=== PATIENT | female | born 1955 | race Hispanic/Latino ===

== ENCOUNTER 2017-12-06 17:48 | Emergency (ER) | payer OTHER ==
[2017-12-06 18:54] LABS: Absolute Lymphocytes (CBC) 2.1 K/uL (0.7-4.9); Absolute Monocytes 0.5 K/uL (0.1-1.3); Absolute Neutrophil 4.6 K/uL (1.8-8.0); Hematocrit 41.2 % (36.0-45.0); Lymphocytes % 28.3 % (15.3-44.8); MCH 30.5 pg (27.0-35.0); MCV 90.3 fL (80-100); Protime INR 1.04; RBC Red Blood Cell Count 4.56 M/uL (3.86-4.86)
[2017-12-06 18:58] LABS: Potassium 3.5 mEq/L (3.6-5.0)
[2017-12-06 19:04] LABS: Albumin 4.3 g/dL (3.2-5.5); Bilirubin Direct 0.1 mg/dL (0-0.2); Bilirubin Total 0.5 mg/dL (0.3-1.2); Protein, Total 7.3 g/dL (6.0-8.3)
--- NOTE | 2017-12-06 19:09 | RAD REPORT ---
EXAM DESCRIPTION: Regan Single View12/06/2017 6:45 pm CLINICAL HISTORY: sob COMPARISON: 2006 FINDINGS: The lungs appear clear of acute infiltrate. The heart is normal size IMPRESSION: No acute abnormalities displayed
--- NOTE | 2017-12-06 19:19 | RAD REPORT ---
EXAM DESCRIPTION: VASExtrem Venous W Compress Bil12/06/2017 7:09 pm CLINICAL HISTORY: Bilateral leg swelling COMPARISON: none FINDINGS: The common femoral, superficial femoral, popliteal and posterior tibial veins bilaterally are compressible and demonstrate augmentation. Doppler demonstrates good flow. IMPRESSION: No evidence of deep venous thrombosis involving either lower extremity.
[2017-12-06 19:28] LABS: Urine Blood NEGATIVE (NEG); Urine Glucose NEGATIVE (NEG); Urine Protein NEGATIVE (NEG)
--- NOTE | 2017-12-06 19:45 | ER ---
Nurse's Notes [facility] Name: Luz Elena Calderon Age: 62 yrs Sex: Female : 1955 Arrival Date: 12/06/2017 Time: 17:50 Bed 25 Private MD: Trey Bell Diagnosis: Bilateral pedal edema Presentation: 12/06 17:56 Presenting complaint: Patient states: RAMIRO LE swelling for 2 weeks. Pt denies SOB. la1 Transition of care: patient was not received from another setting of care. Onset of symptoms was December 06, 2017. Care prior to arrival: None. 17:56 Method Of Arrival: Wheelchair la1 17:56 Acuity: AILEEN 3 la1 Historical: - Allergies: 17:56 No Known Allergies; la1 - PMHx: 17:56 Hypertension; la1 - Immunization history:: Adult Immunizations up to date. - Social history:: Smoking status: Patient/guardian denies using tobacco. Screenin:25 Abuse screen: Denies threats or abuse. Denies injuries from another. Nutritional aj screening: No deficits noted. Tuberculosis screening: No symptoms or risk factors identified. Fall Risk None identified. Assessment: 18:25 General: Appears in no apparent distress. comfortable, Behavior is calm, cooperative, aj appropriate for age. Pain: Denies pain. Neuro: Level of Consciousness is awake, alert, obeys commands, Oriented to person, place, time, situation. Cardiovascular: Capillary refill < 3 seconds in bilateral fingers Patient's skin is warm and dry. Edema is 2+ to left ankle, left foot, left toes, right ankle, right foot and right toes. Respiratory: Airway is patent Respiratory effort is even, unlabored, Respiratory pattern is regular, symmetrical. Derm: Skin is intact, is healthy with good turgor, Skin is pink, warm \T\ dry. normal. 20:22 Reassessment: Patient appears in no apparent distress at this time. No changes from aj previously documented assessment. Patient and/or family updated on plan of care and expected duration. Pain level reassessed. Patient is alert, oriented x 3, equal unlabored respirations, skin warm/dry/pink. Patient denies pain at this time. Vital Signs: 17:56 BP 157 / 85; Pulse 89; Resp 16; Temp 97.1(TE); Pulse Ox 100% on R/A; Weight 94.35 kg la1 (R); 19:53 BP 120 / 75; Pulse 73; Resp 17; Pulse Ox 98% on R/A; aj 20:22 BP 136 / 76; Pulse 77; Resp 17; Pulse Ox 97% on R/A; aj ED Course: 17:50 Patient arrived in ED. as 17:50 Trey Bell MD is Private Physician. as 17:56 Triage completed. la1 17:57 Arm band placed on left wrist. la1 18:00 Junior Nathan MD is Attending Physician. kdr 18:25 Kelly Corona RN is Primary Nurse. aj 18:25 Patient has correct armband on for positive identification. aj 18:36 Inserted saline lock: 20 gauge in right antecubital area, using aseptic technique. aj Blood collected. By Tony Flores. 18:44 XRAY Chest (1 view) In Process Unspecified. EDMS 18:53 Ultrasound completed. Patient tolerated well. sg3 19:32 Attending Physician role handed off by Junior Nathan MD pkl 19:32 Fortino Arriaga MD is Attending Physician. pkl 19:44 Trey Bell MD is Referral Physician. pkl 20:22 No provider procedures requiring assistance completed. IV discontinued, intact, aj bleeding controlled, No redness/swelling at site. Pressure dressing applied. Administered Medications: 20:02 Drug: LaSIX 40 mg Route: PO; aj 20:23 Follow up: Response: No adverse reaction aj 20:02 Drug: K-Dur 20 mEq Route: PO; aj 20:23 Follow up: Response: No adverse reaction aj Outcome: 19:45 Discharge ordered by . pkl 20:22 Discharged to home ambulatory, with family. aj 20:22 Condition: good 20:22 Discharge instructions given to patient, family, Instructed on discharge instructions, follow up and referral plans. medication usage, Demonstrated understanding of instructions, follow-up care, medications, Prescriptions given X 2. 20:24 Patient left the ED. aj Signatures: Dispatcher [employer] EDMS Kelly Corona RN RN aj Lam, Pin, MD MD pkJunior Levy MD MD kdr Martinez, Amelia as Attema, Lee, RN RN la1 Madhuri Sadler sg3 Corrections: (The following items were deleted from the chart) 19:18 19:05 Ultrasound completed. Patient tolerated well. sg3 sg3 :18 19:10 In radiology for Extrem Venous W Compression Ramiro+VAS.RAD.BRZ. EDMS sg3
--- NOTE | 2017-12-06 19:45 | EDPHYS ---
Physician Documentation [facility] Name: Luz Elena Calderon Age: 62 yrs Sex: Female : 1955 Arrival Date: 12/06/2017 Time: 17:50 Bed 25 Private MD: Trey Bell ED Physician Fortino Arriaga HPI: 12/06 18:17 This 62 yrs old Female presents to ER via Wheelchair with complaints of Feet kdr Swelling. 18:17 The patient presents with swelling, tenderness. The complaints affect the left calf, kdr left Achilles, left heel, left borges, anterior aspect of left ankle and dorsum of left foot, right calf, right Achilles, right heel, right borges, anterior aspect of right ankle and dorsum of right foot. Context: The problem was sustained at home, resulted from an unknown cause, the patient can fully bear weight, the patient is able to ambulate, without difficulty. Onset: The symptoms/episode began/occurred gradually, 2 week(s) ago. Modifying factors: The symptoms are alleviated by nothing. the symptoms are aggravated by weight bearing. Associated signs and symptoms: The patient has no apparent associated signs or symptoms. Treatment prior to arrival includes: no previous treatment. Severity of symptoms: At their worst the symptoms were mild, in the emergency department the symptoms are unchanged. The patient has not experienced similar symptoms in the past. The patient has not recently seen a physician. Historical: - Allergies: 17:56 No Known Allergies; la1 - PMHx: 17:56 Hypertension; la1 - Immunization history:: Adult Immunizations up to date. - Social history:: Smoking status: Patient/guardian denies using tobacco. ROS: 18:17 Constitutional: Negative for fever, chills, and weight loss, Eyes: Negative for injury, kdr pain, redness, and discharge, ENT: Negative for injury, pain, and discharge, Neck: Negative for injury, pain, and swelling, Cardiovascular: Negative for chest pain, palpitations, and edema, Respiratory: Negative for shortness of breath, cough, wheezing, and pleuritic chest pain, Abdomen/GI: Negative for abdominal pain, nausea, vomiting, diarrhea, and constipation, Back: Negative for injury and pain, : Negative for injury, bleeding, discharge, and swelling, Skin: Negative for injury, rash, and discoloration, Neuro: Negative for headache, weakness, numbness, tingling, and seizure activity. Psych: Negative for depression, anxiety, suicide ideation, homicidal ideation, and hallucinations, Allergy/Immunology: Negative for hives, rash, and allergies, Endocrine: Negative for neck swelling, polydipsia, polyuria, polyphagia, and marked weight changes, Hematologic/Lymphatic: Negative for swollen nodes, abnormal bleeding, and unusual bruising. 18:17 MS/extremity: Positive for swelling, tenderness. Exam: 18:17 Constitutional: This is a well developed, well nourished patient who is awake, alert, kdr and in no acute distress. Head/Face: Normocephalic, atraumatic. Eyes: Pupils equal round and reactive to light, extra-ocular motions intact. Lids and lashes normal. Conjunctiva and sclera are non-icteric and not injected. Cornea within normal limits. Periorbital areas with no swelling, redness, or edema. Neck: Trachea midline, no thyromegaly or masses palpated, and no cervical lymphadenopathy. Supple, full range of motion without nuchal rigidity, or vertebral point tenderness. No Meningismus. Chest/axilla: Normal chest wall appearance and motion. Nontender with no deformity. No lesions are appreciated. Cardiovascular: Regular rate and rhythm with a normal S1 and S2. No gallops, murmurs, or rubs. Normal PMI, no JVD. No pulse deficits. Respiratory: Lungs have equal breath sounds bilaterally, clear to auscultation and percussion. No rales, rhonchi or wheezes noted. No increased work of breathing, no retractions or nasal flaring. Abdomen/GI: Soft, non-tender, with normal bowel sounds. No distension or tympany. No guarding or rebound. No evidence of tenderness throughout. Back: No spinal tenderness. No costovertebral tenderness. Full range of motion. Skin: Warm, dry with normal turgor. Normal color with no rashes, no lesions, and no evidence of cellulitis. Neuro: Awake and alert, GCS 15, oriented to person, place, time, and situation. Cranial nerves II-XII grossly intact. Motor strength 5/5 in all extremities. Sensory grossly intact. Cerebellar exam normal. Normal gait. Psych: Awake, alert, with orientation to person, place and time. Behavior, mood, and affect are within normal limits. 18:17 Musculoskeletal/extremity: Extremities: Circulation is intact in all extremities. Edema, 2+ to the left midcalf, left ankle, left foot, left toes, right midcalf, right ankle, right foot and right toes is noted. Vital Signs: 17:56 BP 157 / 85; Pulse 89; Resp 16; Temp 97.1(TE); Pulse Ox 100% on R/A; Weight 94.35 kg la1 (R); 19:53 BP 120 / 75; Pulse 73; Resp 17; Pulse Ox 98% on R/A; aj 20:22 BP 136 / 76; Pulse 77; Resp 17; Pulse Ox 97% on R/A; aj MDM: 18:17 Data reviewed: vital signs, nurses notes, lab test result(s). kdr 19:45 Patient medically screened. pkl 12/06 18:17 Order name: LFT's; Complete Time: 19:35 kdr 12/06 18:17 Order name: Basic Metabolic Panel; Complete Time: 19:35 kdr 12/06 18:17 Order name: BNP; Complete Time: 19:35 kdr 12/06 18:17 Order name: CBC with Diff; Complete Time: 19:35 kdr 12/06 18:17 Order name: Magnesium; Complete Time: 19:35 kdr 12/06 18:17 Order name: PT-INR; Complete Time: 19:35 kdr 12/06 18:17 Order name: Ptt, Activated; Complete Time: 19:35 kdr 12/06 18:17 Order name: Troponin (emerg Dept Use Only); Complete Time: 19:35 kdr 12/06 18:17 Order name: XRAY Chest (1 view); Complete Time: 19:35 kdr 12/06 18:17 Order name: EKG; Complete Time: 18:17 kdr 12/06 18:17 Order name: US Extremity Venou Bilateral; Complete Time: 19:35 kdr 12/06 19:23 Order name: Urine Dipstick--Ancillary (enter results); Complete Time: 19:35 rg2 12/06 18:17 Order name: Cardiac monitoring; Complete Time: 18:40 kdr 12/06 18:17 Order name: EKG - Nurse/Tech; Complete Time: 18:40 kdr 12/06 18:17 Order name: IV Saline Lock; Complete Time: 18:40 kdr 12/06 18:17 Order name: Labs collected and sent; Complete Time: 18:40 kdr 12/06 18:17 Order name: O2 Per Protocol; Complete Time: 18:40 kdr 12/06 18:17 Order name: O2 Sat Monitoring; Complete Time: 18:40 kdr 12/06 18:17 Order name: Urine Dipstick-Ancillary (obtain specimen); Complete Time: 18:40 kdr Administered Medications: 20:02 Drug: LaSIX 40 mg Route: PO; aj 20:23 Follow up: Response: No adverse reaction aj 20:02 Drug: K-Dur 20 mEq Route: PO; aj 20: Follow up: Response: No adverse reaction aj Disposition: 12/06/17 19:45 Discharged to Home. Impression: Bilateral pedal edema. - Condition is Stable. - Prescriptions for Lasix 20 mg Oral Tablet - take 1 tablet by ORAL route once daily; 20 tablet. Potassium Chloride 10 mEq Oral Capsule, Sustained Release - take 1 tablet by ORAL route every 12 hours; 40 tablet. - Medication Reconciliation Form, Thank You Letter, Antibiotic Education, Prescription Opioid Use form. - Follow up: Trey Bell MD; When: 7 - 10 days; Reason: Re-evaluation by your physician. - Problem is new. - Symptoms are unchanged. Signatures: Dispatcher [employer] Kelly Yanez, RN Fortino Aquino MD MD pkl Rittger, Kevin, MD MD kdr Attema, Lee, RN RN la1
[2017-12-06] MEDS ORDERED: FUROSEMIDE 40 MG/4 ML VIAL ONE (20:16)
[2017-12-06] MEDS ORDERED: POTASSIUM 25 MEQ EFFERV TAB ONE (20:17)
[2017-12-06] MEDS ORDERED: FUROSEMIDE 40 MG TABLET ONE (20:20)
--- NOTE | 2017-12-07 07:07 | EKG ---
Test Date: 2017-12-06 Test Time: 18:21:09 Hull Inspector: PHUONG MEASUREMENT RESULTS: Intervals: Rate: 84 IL: 168 QRSD: 82 QT: 398 QTc: 470 [place]: P: 38 IL: 168 QRS: 7 T: 31 INTERPRETIVE STATEMENTS: Normal sinus rhythm Moderate voltage criteria for LVH, may be normal variant Borderline ECG Compared to ECG 08/16/2016 17:54:49 No significant changes Electronically Signed On 12-07-17 07:06:33 CDT by Paul Coker
== END 2017-12-06 20:24 | disposition home or self-care (01) ==
LOC: ER 17:48
DX: R60.0 Localized edema (principal); I10 Essential (primary) hypertension
CPT/HCPCS: 36415; 71045; 80048; 80076; 81003; 83735; 83880; 84484; 85025; 85610; 85730; 93005; 93970; 99284

== ENCOUNTER 2018-01-31 08:50 | Emergency (ER) | payer OTHER ==
[2018-01-31] MEDS ORDERED: NA CHLORIDE 0.9% 1,000 ML ONE (09:48)
[2018-01-31] MEDS ORDERED: ONDANSETRON 4 MG/2 ML VIAL ONE (09:48)
[2018-01-31] MEDS ORDERED: MORPHINE 4 MG/ML SYR ONE (09:48)
[2018-01-31 09:55] LABS: Absolute Lymphocytes (CBC) 1.7 K/uL (0.7-4.9); Absolute Monocytes 0.3 K/uL (0.1-1.3); Absolute Neutrophil 3.7 K/uL (1.8-8.0); Basophils % 0.9 % (0-1.3); Eosinophils % 3.8 % (0-4.4); Hematocrit 40.8 % (36.0-45.0); Lymphocytes % 27.5 % (15.3-44.8); MCH 30.9 pg (27.0-35.0); MCV 91.3 fL (80-100); MPV 9.5 fL (7.6-11.3); Monocytes % 5.8 % (3.3-12.3); RBC Red Blood Cell Count 4.47 M/uL (3.86-4.86)
[2018-01-31 10:01] LABS: Potassium 3.7 mEq/L (3.6-5.0)
--- NOTE | 2018-01-31 11:23 | RAD REPORT ---
EXAM DESCRIPTION: CT - Head C Spine Cap W Con - 01/31/2018 11:02 am CLINICAL HISTORY: Fall, head, neck, chest and abdomen pain COMPARISON: CT head August 2016 TECHNIQUE: Axial [address] head images were obtained. Axial [address] cervical spine images were obtaine d with sagittal and coronal reconstruction images reviewed. During dynamic enhancement of 100mL non-i onic contrast, axial 5 mm images of the chest, abdomen and pelvis were obtained. All CT scans are performed using dose optimization technique as appropriate and may include automated exposure control or mA/KV adjustment according to patient size. FINDINGS: No intracranial hemorrhage, mass or edema. No midline shift or abnormal fluid collection. Ventricles are normal. Arterial and physiologic calcifications are present. Mastoid air cells and par anasal sinuses are clear. No skull fracture. CT cervical spine imaging shows normal height. Normal alignment of the vertebrae. No significant loss in disc height. Degenerative changes are mild for age. No paraspinal mass or hematoma seen. Central canal detail is inherently limited. Concerns for traumatic disc herniation or traumatic cord injury c an be further addressed with MR imaging. CT chest shows no pneumothorax, pulmonary contusion or pleural fluid collection. No mediastinal hemat angelica and the aorta and pulmonary arteries are unremarkable. No chest will mass or abnormal axillary fi nding. No displaced rib fracture or other significant bony finding. CT abdomen and pelvis show no injury to solid abdominal viscera. Cholecystectomy changes are evident. No biliary tree dilatation. No bowel injury or significant finding. No free air, free fluid or abnor mal stranding. No urinary bladder abnormality. Patient has a 6 centimeter fat only umbilical hernia w ith a 2 centimeter neck. No congestion or edema of the herniated fat. Disc and bony degenerative changes are present. No acute bone finding. IMPRESSION: No hemorrhage, edema or acute CT Head finding. No significant change from the [address] study . No significant CT Cervical Spine finding. No significant CT Chest finding. No significant CT Abdomen and Pelvis finding.
--- NOTE | 2018-01-31 11:28 | EDPHYS ---
Physician Documentation [facility] Name: Luz Elena Calderon Age: 62 yrs Sex: Female : 1955 Arrival Date: 01/31/2018 Time: 08:53 Bed 14 Private MD: Trey Bell ED Physician Narendra Flores HPI: 01/31 11:29 This 62 yrs old Female presents to ER via Wheelchair with complaints of Fall ps1 Injury. 11:29 patient had recently cleaned the tub and was showering. Slipped and hit the left side ps1 of her body on the tub edge. Complaining of left flank pain and rib pain. Pain rated as moderate and worse with movement. No shortness of breath. Not on blood thinners. Did not hit head, no LOC. . Historical: - Allergies: 11:39 No Known Allergies; tw2 - Home Meds: 11:39 lisinopril 10 mg Oral tab 1 tab twice a day [Active]; tw2 - PMHx: 09:12 Hypertension; iw - Immunization history:: Adult Immunizations up to date. - Social history:: Smoking status: Patient/guardian denies using tobacco. - Ebola Screening: : Patient negative for fever greater than or equal to 101.5 degrees Fahrenheit, and additional compatible Ebola Virus Disease symptoms Patient denies travel to an Ebola-affected area in the 21 days before illness onset. ROS: 11:29 Constitutional: Negative for fever, chills, and weight loss, Eyes: Negative for injury, ps1 pain, redness, and discharge, ENT: Negative for injury, pain, and discharge, Cardiovascular: Negative for chest pain, palpitations, and edema, Respiratory: Negative for shortness of breath, cough, wheezing, and pleuritic chest pain, Abdomen/GI: Negative for abdominal pain, nausea, vomiting, diarrhea, and constipation. 11:29 Skin: Negative for injury, rash, and discoloration, Neuro: Negative for headache, weakness, numbness, tingling, and seizure, Psych: Negative for depression, anxiety, suicide ideation, homicidal ideation, and hallucinations. 11:29 MS/extremity: Positive for contusion, tenderness. Exam: 11:29 Constitutional: This is a well developed, well nourished patient who is awake, alert, ps1 and in no acute distress. Head/Face: Normocephalic, atraumatic. Eyes: Pupils equal round and reactive to light, extra-ocular motions intact. Lids and lashes normal. Conjunctiva and sclera are non-icteric and not injected. Neck: Trachea midline, no thyromegaly or masses palpated, and no cervical lymphadenopathy. Supple, full range of motion without nuchal rigidity, or vertebral point tenderness. No Meningismus. Cardiovascular: Regular rate and rhythm. No gallops, murmurs, or rubs. Normal PMI, no JVD. No pulse deficits. Respiratory: Lungs have equal breath sounds bilaterally, clear to auscultation and percussion. No rales, rhonchi or wheezes noted. No increased work of breathing, no retractions or nasal flaring. Abdomen/GI: Soft, non-tender, with normal bowel sounds. No distension or tympany. No guarding or rebound. No evidence of tenderness throughout. Skin: Warm, dry with normal turgor. Normal color with no rashes, no lesions, and no evidence of cellulitis. MS/ Extremity: Pulses equal, no cyanosis. Neurovascular intact. Full, normal range of motion. Neuro: Awake and alert, GCS 15, oriented to person, place, time, and situation. Cranial nerves II-XII grossly intact. Sensory grossly intact. 11:29 Chest/axilla: Inspection: normal, Palpation: tenderness, that is mild, of the left lateral anterior chest, that totally reproduces the patient's complaints. Vital Signs: 09:11 BP 165 / 70; Pulse 55; Resp 16; Temp 97.7(TE); Pulse Ox 96% on R/A; iw 11:23 BP 164 / 76; Pulse 52; Resp 17; Pulse Ox 100% on R/A; tw2 MDM: 09:32 Patient medically screened. ps1 11:29 Data reviewed: vital signs, nurses notes, lab test result(s), radiologic studies, CT ps1 scan. ED course: Pain addressed. Labs and imaging reviewed, no acute traumatic findings. Pt stable to go home with Anaprox, Medrol, and Robaxin. Pt to follow up with PCP if symptoms do not improve for further diagnostic workup. . 01/31 09:30 Order name: Basic Metabolic Panel; Complete Time: 10: ps1 01/31 09:30 Order name: CBC with Diff; Complete Time: 10: ps1 01/31 09:30 Order name: Creatinine for Radiology; Complete Time: 10:21 ps1 01/31 09:30 Order name: Type And Screen; Complete Time: 11:02 [facility] 01/31 10:20 Order name: Urine Dipstick--Ancillary (enter results) bd 01/31 10:55 Order name: ABO/RH no charge; Complete Time: 11:02 EDMS 01/31 09:30 Order name: Labs collected and sent; Complete Time: 09:49 ps1 01/31 09:30 Order name: Urine Dipstick-Ancillary (obtain specimen); Complete Time: 10:45 [facility] 01/31 10:40 Order name: Head C Spine Cap W Con; Complete Time: 11:26 EDMS Administered Medications: 09:50 Drug: Zofran 4 mg Route: IVP; Site: right antecubital; tw2 11:22 Follow up: Response: No adverse reaction tw2 09:53 Drug: morphine 4 mg Route: IVP; Site: right antecubital; tw2 11:22 Follow up: Response: No adverse reaction tw2 09:55 Drug: NS 0.9% 1000 ml Route: IV; Rate: 1 bolus; Site: right antecubital; tw2 11:39 Follow up: Response: No adverse reaction; IV Status: Completed infusion; IV Intake: tw2 1000ml Disposition: 01/31/18 11:27 Discharged to Home. Impression: Fall, left rib pain, left flank pain. . - Condition is Stable. - Discharge Instructions: Rib Contusion, Fall Prevention and Home Safety. - Prescriptions for Anaprox DS 550 mg Oral Tablet - take 1 tablet by ORAL route every 12 hours As needed; 20 tablet. Robaxin 500 mg Oral Tablet - take 2 tablet by ORAL route every 6 hours As needed; 40 tablet. Medrol (Pratik) 4 mg Oral Tablets, Dose Pack - take 1 tablet by ORAL route as directed - follow package instructions; 1 packet. - Medication Reconciliation Form, Thank You Letter, Antibiotic Education, Prescription Opioid Use form. - Follow up: Trey Bell MD; When: As needed; Reason: Recheck today's complaints, Continuance of care, Re-evaluation by your physician. Follow up: Emergency Department; When: As needed; Reason: Trouble breathing, Worsening of condition. - Problem is new. - Symptoms have improved. Signatures: Dispatcher [employer] [facility] Nadine Aj, RN RN iw Bette Maya, RN RN tw2 Narendra Flores MD MD ps1 Corrections: (The following items were deleted from the chart) 10:39 09:31 Head C Spine CAP W Con+CT.RAD.BRZ ordered. [facility] 11:41 11:27 01/31/2018 11:27 Discharged to Home. Impression: Fall, left rib pain, left flank tw2 pain. . Condition is Stable. Forms are Medication Reconciliation Form, Thank You Letter, Antibiotic Education, Prescription Opioid Use. Follow up: Trey Bell; When: As needed; Reason: Recheck today's complaints, Continuance of care, Re-evaluation by your physician. Follow up: Emergency Department; When: As needed; Reason: Trouble breathing, Worsening of condition. Problem is new. Symptoms have improved. ps1
--- NOTE | 2018-01-31 11:28 | ER ---
Nurse's Notes [facility] Name: Luz Elena Calderon Age: 62 yrs Sex: Female : 1955 Arrival Date: 01/31/2018 Time: 08:53 Bed 14 Private MD: Trey Bell Diagnosis: Fall, left rib pain, left flank pain. Presentation: 01/31 09:10 Presenting complaint: Patient states: slipped in bathtub about 45 min ago, fell to left iw side, hit the side of tub, now has pain to left ribs, did not hit head, no LOC. Care prior to arrival: None. 09:10 Acuity: AILEEN 4 iw 09:10 Method Of Arrival: Wheelchair iw 09:12 Transition of care: patient was not received from another setting of care. Onset of iw symptoms was January 31, 2018. Risk Assessment: Do you want to hurt yourself or someone else? Patient reports no desire to harm self or others. Initial Sepsis Screen: Does the patient meet any 2 criteria? No. Patient's initial sepsis screen is negative. Does the patient have a suspected source of infection? No. Patient's initial sepsis screen is negative. Historical: - Allergies: 11:39 No Known Allergies; tw2 - Home Meds: 11:39 lisinopril 10 mg Oral tab 1 tab twice a day [Active]; tw2 - PMHx: 09:12 Hypertension; iw - Immunization history:: Adult Immunizations up to date. - Social history:: Smoking status: Patient/guardian denies using tobacco. - Ebola Screening: : Patient negative for fever greater than or equal to 101.5 degrees Fahrenheit, and additional compatible Ebola Virus Disease symptoms Patient denies travel to an Ebola-affected area in the 21 days before illness onset. Screenin:38 Abuse screen: Denies threats or abuse. Nutritional screening: No deficits noted. tw2 Tuberculosis screening: No symptoms or risk factors identified. Fall Risk None identified. Assessment: 10:10 General: Appears in no apparent distress. obese, well groomed, Behavior is calm, tw2 cooperative, appropriate for age. Pain:. 10:10 Neuro: Level of Consciousness is awake, alert, obeys commands, Oriented to person, tw2 place, time, situation. Cardiovascular: Denies chest pain, shortness of breath, Heart tones S1 S2 Capillary refill < 3 seconds Patient's skin is warm and dry. Respiratory: Airway is patent Respiratory effort is even, unlabored, Respiratory pattern is regular, symmetrical, Breath sounds are clear bilaterally. GI: Abdomen is round non-distended, obese, Bowel sounds present X 4 quads. : No signs and/or symptoms were reported regarding the genitourinary system. EENT: No signs and/or symptoms were reported regarding the EENT system. Derm: Skin is intact, is healthy with good turgor, Skin temperature is warm. Musculoskeletal: Circulation, motion, and sensation intact. Range of motion: intact in all extremities. 10:13 Reassessment: pt taken to scan at this time via w/c. tw2 10:28 Reassessment: Patient appears in no apparent distress at this time. No changes from tw2 previously documented assessment. Patient and/or family updated on plan of care and expected duration. Pain level reassessed. Patient is alert, oriented x 3, equal unlabored respirations, skin warm/dry/pink. 10:31 Reassessment: pt taken back to CT at this time via stretcher with Marissa Hooks. tw2 11:23 Reassessment: Patient appears in no apparent distress at this time. No changes from tw2 previously documented assessment. Patient and/or family updated on plan of care and expected duration. Pain level reassessed. Patient is alert, oriented x 3, equal unlabored respirations, skin warm/dry/pink. Patient states feeling better. Vital Signs: 09:11 BP 165 / 70; Pulse 55; Resp 16; Temp 97.7(TE); Pulse Ox 96% on R/A; iw 11:23 BP 164 / 76; Pulse 52; Resp 17; Pulse Ox 100% on R/A; tw2 ED Course: 08:53 Patient arrived in ED. mr 08:53 Trey Bell MD is Private Physician. mr 09:11 Triage completed. iw 09:13 Bette Maya, JULIETTE is Primary Nurse. tw2 09:21 Narendra Flores MD is Attending Physician. ps1 09:44 Radiology exam delayed due to lab results not completed at this time. (BUN/Creatinine). cw1 10:10 Urine collected: clean catch specimen, clear. mh5 10:10 Arm band placed on. tw2 10:11 Patient has correct armband on for positive identification. Placed in gown. Bed in low mh5 position. Call light in reach. Side rails up X 1. Adult w/ patient. front desk monitor on. Pulse ox on. NIBP on. 11:02 Head C Spine Cap W Con In Process Unspecified. EDMS 11:27 Trey Bell MD is Referral Physician. ps1 11:39 No provider procedures requiring assistance completed. IV discontinued, intact, tw2 bleeding controlled, No redness/swelling at site. Pressure dressing applied. Administered Medications: 09:50 Drug: Zofran 4 mg Route: IVP; Site: right antecubital; tw2 11:22 Follow up: Response: No adverse reaction tw2 09:53 Drug: morphine 4 mg Route: IVP; Site: right antecubital; tw2 11:22 Follow up: Response: No adverse reaction tw2 09:55 Drug: NS 0.9% 1000 ml Route: IV; Rate: 1 bolus; Site: right antecubital; tw2 11:39 Follow up: Response: No adverse reaction; IV Status: Completed infusion; IV Intake: tw2 1000ml Intake: 11:39 IV: 1000ml; Total: 1000ml. tw2 Outcome: 11:27 Discharge ordered by . ps1 11:40 Discharged to home via wheelchair, with family. tw2 11:40 Condition: stable 11:40 Discharge instructions given to patient, family, Instructed on discharge instructions, follow up and referral plans. no drinking with medication, no driving heavy equipment, medication usage, Demonstrated understanding of instructions, follow-up care, medications, Prescriptions given X 3. 11:41 Instructed on safety practices. tw2 11:41 Patient left the ED. tw2 Signatures: Dispatcher [employer] [facility] Alda Farris Irene, RN Neva Dean 1 Bette Maya RN RN 2 Alda Dejesus [facility] Narendra Flores MD MD ps1 Corrections: (The following items were deleted from the chart) 10:29 10:10 General: Appears in no apparent distress. obese, well groomed, Behavior is calm, tw2 cooperative, appropriate for age, tw2 10:39 10:13 In radiology for Head C Spine CAP W Con+CT.RAD.BRZ. EDMS EDMS
[2018-01-31 13:38] LABS: Urine Blood NEGATIVE (NEG); Urine Glucose NEGATIVE (NEG); Urine Protein NEGATIVE (NEG); Urine Specific Gravity 1.015 (1.005-1.030); Urine pH 5.5 (5.0-7.0)
== END 2018-01-31 11:41 | disposition home or self-care (01) ==
LOC: ER 08:50
DX: R10.9 Unspecified abdominal pain (principal); W18.30XA Fall on same level, unspecified, initial encounter; Y93.E1 Activity, personal bathing and showering; Y92.002 Bathroom of unspecified non-institutional (private) residence as the place of occurrence of the external cause; I10 Essential (primary) hypertension
CPT/HCPCS: 36415; 70450; 71260; 72125; 74177; 80048; 81003; 85025; 86850; 86900; 86901; 96361; 96374; 96375; 99284; J2405; J7030; Q9967

== ENCOUNTER 2018-03-29 07:57 | Day surgery (SDC) | payer OTHER ==
[2018-03-24 16:14] LABS: Absolute Lymphocytes (CBC) 2.2 K/uL (0.7-4.9); Absolute Monocytes 0.4 K/uL (0.1-1.3); Absolute Neutrophil 3.9 K/uL (1.8-8.0); Basophils % 1.2 % (0-1.3); Eosinophils % 5.4 % (0-4.4); Hematocrit 40.5 % (36.0-45.0); Lymphocytes % 31.3 % (15.3-44.8); MCH 31.8 pg (27.0-35.0); MCV 91.5 fL (80-100); MPV 9.5 fL (7.6-11.3); Monocytes % 5.9 % (3.3-12.3); RBC Red Blood Cell Count 4.42 M/uL (3.86-4.86)
--- NOTE | 2018-03-24 16:26 | RAD REPORT ---
EXAM DESCRIPTION: RAD - Chest Pa And Lat (2 Views) - 03/24/2018 4:12 pm CLINICAL HISTORY: Preop chest, hypertension COMPARISON: December 06 TECHNIQUE: PA and lateral views of the chest were obtained. FINDINGS: The lungs are clear of a peripheral mass, consolidation or failure finding. Interstitial m arkings are prominent but not clearly different from the prior study. Hilar regions also stable from prior study. Trachea is midline. Heart size is normal and central vasculature is within normal limi ts. No pleural effusion or pneumothorax seen. No acute bony finding noted. No aortic abnormality. IMPRESSION: No acute cardiopulmonary process. Chronic interstitial lung disease similar to comparison.
[2018-03-24 16:29] LABS: Potassium 3.7 mmol/L (3.5-5.1)
--- NOTE | 2018-03-25 13:54 | EKG ---
Test Date: 2018-03-24 Test Time: 16:01:25 Note Taker: REY MEASUREMENT RESULTS: Intervals: Rate: 69 CT: 142 QRSD: 80 QT: 422 QTc: 452 [place]: P: 4 CT: 142 QRS: 5 T: 25 INTERPRETIVE STATEMENTS: Normal sinus rhythm Moderate voltage criteria for LVH, may be normal variant Borderline ECG Compared to ECG 12/06/2017 18:21:09 No significant changes Electronically Signed On 03-25-18 13:52:10 CDT by Royce Valdivia
[2018-03-29] MEDS ORDERED: Ringers Lactate 1,000 ML IV ONE (08:31)
[2018-03-29] MEDS ORDERED: CEFAZOLIN/SWI 1gm 1 GM/10 ML SYR ONE (08:31)
[2018-03-29] MEDS ORDERED: LIDOCAINE 2% MPF 5 ML VIAL ONE (08:59)
[2018-03-29] MEDS ORDERED: PROPOFOL 200 MG/20 ML VIAL IV ONE (08:59)
[2018-03-29] MEDS ORDERED: MIDAZOLAM HCL 2 MG/2 ML INJ ONE (08:59)
[2018-03-29] MEDS ORDERED: FENTANYL CITR 100 MCG/2 ML ONE (09:00)
[2018-03-29] MEDS ORDERED: GLYCOPYRROLATE 0.2 MG/ML SYR ONE (09:01)
[2018-03-29] MEDS ORDERED: NEOSTIGMINE 1 MG/ML -5 ML SYRINGE ONE (09:02)
[2018-03-29] MEDS ORDERED: ROCURONIUM 50 MG/5 ML VIAL IV ONE (09:02)
[2018-03-29] MEDS ORDERED: ONDANSETRON HCL 40 MG/20 ML VIAL ONE (09:03)
--- NOTE | 2018-03-29 10:17 | P.BOP ---
Preoperative diagnosis: incarcerated incisional umbilical hernia Postoperative diagnosis: same Primary procedure: Open repair of incarcerated INCISIONAL umbilical hernia Claims Account Specialist: Elana Bruner) Estimated blood loss: <10cc Specimen: hernia sac and omentum Findings: incarcerated omentum Anesthesia: General Complications: None Transferred to: Recovery Room Condition: Good
[2018-03-29] MEDS: MEPERIDINE HCL 25 MG/0.5 ML ONE ×2 (10:40→10:45)
[2018-03-29] MEDS ORDERED: CODEINE 30MG/APAP 300MG TAB ONE (11:28)
--- NOTE | 2018-03-29 12:23 | OP ---
Date of Procedure: 03/29/2018 Surgeon: Keon Dejesus MD Turf Sales Person: YAEL Dominguez. Preoperative Diagnosis: Incarcerated incisional umbilical hernia. Postoperative Diagnosis: Incarcerated incisional umbilical hernia. Procedure: Open repair of incarcerated incisional umbilical hernia Estimated Blood Loss: Less than 10 cc. Specimen: Hernia sac and omentum. Finding: Incarcerated omentum. Anesthesia: General plus local. Indication For Procedure: This is the case of a 62-year-old patient with a large umbilical incisiona l hernia. The patient has history of C-sections in the past. Benefits, alternatives, and risks of r epair were explained to the patient, which include, but are not limited to infection, bleeding, damag e to adjacent structures, anesthesia complication, recurrence, MA, and even . She also understa nds this might not relieve any symptoms. She might need more than one surgical intervention. It is important for her also to avoid heavy lifting, also important to lose some weight. She signed a cons ent. Description Of Procedure: The patient brought to the operating room, placed in supine position. Ane sthesia was done without complication. Abdominal area was prepped and draped in a sterile fashion. A curvilinear incision was made in the infraumbilical region. Incision was carried down to the fasci a. We noticed a large amount of omentum coming through the defects on the previous incision. The he rnia sac and the content were identified as omentum. Cannot retract back into the abdominal cavity. So, we proceeded to suture ligate that omentum with chromic between clamps. Once the area inspected that we noticed the omentum to be not bleeding. Then we proceeded to retract back into the abdomina l cavity after tying that with 0 chromic. That allowed us then to visualize the fascia edges better. We cleaned the fascia edges. We proceeded to approximate them using #1 Prolene in figure-eight fas hion multiple times with the fascia edges coming together nicely. The area was irrigated. To oblite rate the space created by the lack of content of incarceration, we proceeded to close the subcutaneou s tissue with 3-0 chromic in multiple layers and then the skin in the subcuticular fashion with Steri -Strips on top. The patient tolerated the procedure well. Local anesthesia was applied over the are a at the beginning. The patient was sent to recovery in stable condition. Preoperative Diagnosis: Incarcerated incisional umbilical hernia. Postoperative Diagnosis: Incarcerated incisional umbilical hernia. Procedures: Open repair of incarcerated incisional umbilical hernia. Disposition: Home. Activity: As tolerated. No heavy lifting. Followup: Follow up in my office in 1 week. Call for appointment [phone]. Keep area intact until next visit. If the dressings becomes wet, then she can remove the dressings, take a shower and then replace the dressings including a cotton ball to minimize the space in the subcutaneous tissue. Medi cations include Bactrim DS p.o. b.i.d. and Tylenol No.3 q.4 hours p.r.n. pain. AGUILAR/DAYAMI Voice ID: [id number] Report ID: [id number]
== END 2018-03-29 12:15 | disposition home or self-care (01) ==
LOC: OR 07:57
PROVIDERS: ATTEND Surgery
PROC: 0WQF0ZZ Repair Abdominal Wall, Open Approach (ICD-10-PCS; principal; 2018-03-29 09:15)
DX: K42.0 Umbilical hernia with obstruction, without gangrene (principal); I10 Essential (primary) hypertension; Z82.49 Family history of ischemic heart disease and other diseases of the circulatory system; Z80.9 Family history of malignant neoplasm, unspecified
CPT/HCPCS: 36415; 71046; 80048; 85025; 88302; 93005; J0690; J2175; J2250; J2405; J2710; J3010

== ENCOUNTER 2019-04-29 18:01 | Emergency (ER) | payer OTHER ==
[2019-04-29 18:57] LABS: Absolute Lymphocytes (CBC) 2.1 K/uL (0.7-4.9); Basophils % 1.1 % (0-1.3); Hematocrit 40.8 % (36.0-45.0); MPV 8.7 fL (7.6-11.3); RBC Red Blood Cell Count 4.39 M/uL (3.86-4.86)
[2019-04-29 19:00] LABS: Protime INR 1.07
[2019-04-29] MEDS ORDERED: ASPIRIN 81 MG CHEWABLE TABLET ONE (19:16)
[2019-04-29 19:21] LABS: ALT/SGPT 73 U/L (12-78); AST/SGOT 42 U/L (15-37); Albumin 3.8 g/dL (3.4-5.0); Alkaline Phosphatase 87 U/L (45-117); BUN Blood Urea Nitrogen 19 mg/dL (7-18); Bicarbonate 24 mmol/L (21-32); Bilirubin Direct 0.2 mg/dL (0-0.2); Bilirubin Total 0.5 mg/dL (0.2-1.0); Glucose Level 118 mg/dL (74-106); Magnesium 2.1 mg/dL (1.8-2.4); NT PRO-BNP 41 pg/mL (<125); Potassium 3.7 mmol/L (3.5-5.1); Protein, Total 7.3 g/dL (6.4-8.2); Sodium Level 143 mmol/L (136-145); Troponin (Emerg Dept Use Only) < 0.02 ng/mL (0.0-0.045)
--- NOTE | 2019-04-29 19:22 | RAD REPORT ---
EXAM DESCRIPTION: CT - Head Brain Wo Cont - 04/29/2019 6:50 pm CLINICAL HISTORY: Hypertension, left arm pain COMPARISON: CT head August 2016 TECHNIQUE: Axial 5 mm thick images of the head were obtained without IV contrast. All CT scans are performed using dose optimization technique as appropriate and may include automated exposure control or mA/KV adjustment according to patient size. FINDINGS: No intracranial hemorrhage, mass, edema or shift of mid-line structures. No acute infarcti on changes seen. No abnormal extra-axial fluid collections. Ventricles are normal. No acute intracran ial finding or significant change from the comparison study. Mastoid air cells and visualized portions of the paranasal sinuses are clear. No acute bony findings. IMPRESSION: Negative non-contrast CT head examination for acute finding. No significant change from 2016 study.
--- NOTE | 2019-04-29 19:30 | RAD REPORT ---
EXAM DESCRIPTION: RAD - Chest Single View - 04/29/2019 7:05 pm CLINICAL HISTORY: Hypertension, left shoulder and arm pain COMPARISON: March 2018 TECHNIQUE: AP portable chest image was obtained 1901 hours . FINDINGS: Lung volumes are low. No focal lung parenchymal process. Interstitial pattern is similar t o comparison when adjusting for inspiration differences. Heart and vasculature are normal. No measura ble pleural effusion and no pneumothorax. No acute bony abnormality seen. No acute aortic findings pineda spected. IMPRESSION: No acute cardiopulmonary process. No significant interval change.
[2019-04-29] MEDS ORDERED: MORPHINE 2 MG/ML SYR ONE (20:57)
--- NOTE | 2019-04-29 23:23 | ER ---
Nurse's Notes [facility] Name: Luz Elena Calderon Age: 63 yrs Sex: Female : 1955 Arrival Date: 04/29/2019 Time: 18:06 Bed 8 Private MD: Trey Bell Diagnosis: Headache;Pain in left upper arm;Hypertensive heart disease Presentation: 04/29 18:20 Presenting complaint: Child states: She has been having higher BP at home and her blood la1 vessels in her eye keep popping. She also is complaining of left arm pain that started an hour ago. Transition of care: patient was not received from another setting of care. Onset of symptoms was April 29, 2019. Risk Assessment: Do you want to hurt yourself or someone else? Patient reports no desire to harm self or others. Initial Sepsis Screen: Does the patient meet any 2 criteria? No. Patient's initial sepsis screen is negative. Does the patient have a suspected source of infection? No. Patient's initial sepsis screen is negative. Care prior to arrival: None. 18:20 Method Of Arrival: Ambulatory la1 18:20 Acuity: AILEEN 3 la1 Triage Assessment: 19:37 General: Appears in no apparent distress. Behavior is calm, cooperative. ak1 Historical: - Allergies: 18:19 No Known Allergies; la1 - Home Meds: 18:19 lisinopril 40 mg oral tab 1 tab once daily [Active]; omeprazole 20 mg Oral cpDR 1 cap la1 once daily [Active]; - PMHx: 18:19 Hypertension; la1 - PSHx: 18:19 Cholecystectomy; Tubal ligation; Hernia repair; la1 - Immunization history:: Adult Immunizations up to date. - Social history:: Smoking status: Patient/guardian denies using tobacco. - Ebola Screening: : No symptoms or risks identified at this time. Screenin:00 Abuse screen: Denies threats or abuse. Denies injuries from another. Nutritional sg screening: No deficits noted. Tuberculosis screening: No symptoms or risk factors identified. Never had TB. Fall Risk None identified. Assessment: 18:52 Reassessment: pt off the unit in CT at this time. sg 19:00 General: Appears in no apparent distress. comfortable, Behavior is calm, cooperative, rr5 appropriate for age. 19:00 Pain: Denies pain. Neuro: Level of Consciousness is awake, alert, obeys commands, rr5 Oriented to person, place, time, situation, Appropriate for age. Cardiovascular: Reports left arm pain and high blood pressure. Capillary refill < 3 seconds Patient's skin is warm and dry. Respiratory: Airway is patent Respiratory effort is even, unlabored, Respiratory pattern is regular, symmetrical. GI: No signs and/or symptoms were reported involving the gastrointestinal system. GI: No signs and/or symptoms were reported involving the gastrointestinal system. : No signs and/or symptoms were reported regarding the genitourinary system. EENT: Reports eye popping because of the high pressure. Derm: Skin is intact, Skin temperature is warm. Musculoskeletal: Circulation, motion, and sensation intact. Capillary refill < 3 seconds. 19:50 Reassessment: patient said she is been diagnosed with H pylori advised not to take like rr5 aspirin. ED provider informed and explained to patient they can still take the one time dose of aspirin as per ED provider advised. patient agreed to take it. 20:30 Reassessment: Patient appears in no apparent distress at this time. Patient and/or rr5 family updated on plan of care and expected duration. Pain level reassessed. Patient is alert, oriented x 3, equal unlabored respirations, skin warm/dry/pink. Patient denies pain at this time. 20:55 Reassessment: ED provider aware, patient denies any chest pain, morphine medication rr5 hold. 21:21 Reassessment: Patient appears in no apparent distress at this time. Patient and/or rr5 family updated on plan of care and expected duration. Pain level reassessed. Patient is alert, oriented x 3, equal unlabored respirations, skin warm/dry/pink. for repeat cardiac enzyme and ECG at 2230 Patient denies pain at this time. 22:30 Reassessment: Patient appears in no apparent distress at this time. Patient and/or rr5 family updated on plan of care and expected duration. Pain level reassessed. Patient is alert, oriented x 3, equal unlabored respirations, skin warm/dry/pink. repeat cardiac exam Extracted and ECG. 23:30 Reassessment: Patient appears in no apparent distress at this time. Patient and/or rr5 family updated on plan of care and expected duration. Pain level reassessed. Patient is alert, oriented x 3, equal unlabored respirations, skin warm/dry/pink. discharge instruction given and explained to patient and director of property management without complaints made. Patient denies pain at this time. Patient states feeling better. Patient states symptoms have improved. Vital Signs: 18:18 Pulse 82; Resp 16; Temp 97.4; Pulse Ox 98% on R/A; Weight 86.18 kg; Height 5 ft. 1 in. la1 (154.94 cm); 18:20 BP 157 / 74; la1 19:10 BP 135 / 70; Pulse 66; Resp 17; Temp 97.5; Pulse Ox 99% ; Pain 0/10; rr5 20:30 BP 131 / 79; Pulse 63; Resp 15; Pulse Ox 99% on R/A; rr5 21:20 BP 145 / 75; Pulse 63; Resp 17; Pulse Ox 99% ; Pain 0/10; rr5 23:24 BP 112 / 55; Pulse 60; Resp 23; Pulse Ox 96% on R/A; ak1 18:18 Body Mass Index 35.90 (86.18 kg, 154.94 cm) la1 ED Course: 18:06 Patient arrived in ED. mr 18:06 Trey Bell MD is Private Physician. mr 18:18 Arm band placed on left wrist. la1 18:21 Triage completed. la1 18:24 [facility] cp 18:24 Eyad Martinez MD is Attending Physician. cp 18:52 CT Head Brain wo Cont In Process Unspecified. EDMS 18:52 Initial lab(s) drawn, by me, sent to lab. Inserted saline lock: 20 gauge in right sg antecubital area, using aseptic technique. Blood collected. 19:07 XRAY Chest (1 view) In Process Unspecified. EDMS 19:12 Robinson Cartwright, RN is Primary Nurse. rr5 19:37 Patient has correct armband on for positive identification. Bed in low position. Call ak1 light in reach. Side rails up X 1. Pulse ox on. NIBP on. 22:30 Repeat lab(s) drawn. by me, sent to lab. rr5 23:36 No provider procedures requiring assistance completed. IV discontinued, intact, rr5 bleeding controlled, No redness/swelling at site. Pressure dressing applied. Administered Medications: 19:52 Drug: Aspirin Chewable Tablet 324 mg Route: PO; rr5 21:00 Follow up: Response: No adverse reaction rr5 23:37 Not Given (Other Intervention Used; no pain reported): morphine 2 mg IVP once; (PAIN>8) rr5 RASS on ADMN: Combtv4, Very Agttd3, Agttd2, Rstlss1, AlertClm0, Drwsy-1, LtSdtn-2, ModSdtn-3, DpSdtn-4, UnArsble-5 x2 Outcome: 23:23 Discharge ordered by . cp 23:36 Discharged to home ambulatory, with family. rr5 23:36 Condition: stable 23:36 Discharge instructions given to patient, family, Instructed on discharge instructions, follow up and referral plans. medication usage, Demonstrated understanding of instructions, follow-up care, medications, Prescriptions given X 1. 23:38 Patient left the ED. rr5 Signatures: Dispatcher [employer] EDMS Pablo Baker RN RN Farris [facility] Leighton Kay RN RN la1 Sara Parker RN RN ak1 Eyad Ray PA PA cp Roque, Raymond, RN RN rr5
--- NOTE | 2019-04-29 23:24 | EDPHYS ---
Physician Documentation [facility] Name: Luz Elena Calderon Age: 63 yrs Sex: Female : 1955 Arrival Date: 04/29/2019 Time: 18:06 Bed 8 Private MD: Trey Bell ED Physician Eyad Martinez HPI: 04/29 18:40 This 63 yrs old Female presents to ER via Ambulatory with complaints of High cp Blood Pressure, Arm Pain. 18:40 The patient or guardian complains of pain, that is acute. left shoulder and left cp trapezius. Onset: The symptoms/episode began/occurred just prior to arrival. Associated signs and symptoms: Pertinent positives: neck pain, left jaw pain, headache. 18:41 Treatment prior to arrival includes: no previous treatment. cp Historical: - Allergies: 18:19 No Known Allergies; la1 - Home Meds: 18:19 lisinopril 40 mg oral tab 1 tab once daily [Active]; omeprazole 20 mg Oral cpDR 1 cap la1 once daily [Active]; - PMHx: 18:19 Hypertension; la1 - PSHx: 18:19 Cholecystectomy; Tubal ligation; Hernia repair; la1 - Immunization history:: Adult Immunizations up to date. - Social history:: Smoking status: Patient/guardian denies using tobacco. - Ebola Screening: : No symptoms or risks identified at this time. ROS: 18:45 Constitutional: Negative for body aches, chills, fever, poor PO intake. cp 18:45 Eyes: Negative for injury, pain, redness, and discharge. cp 18:45 ENT: Positive for left jaw pain, Negative for drainage from ear(s), ear pain, sore throat, difficulty swallowing, difficulty handling secretions. 18:45 Neck: Positive for pain with movement, pain at rest, tenderness, of the left lateral neck. 18:45 Cardiovascular: Negative for chest pain, edema, palpitations. 18:45 Respiratory: Negative for cough, shortness of breath, wheezing. 18:45 Abdomen/GI: Negative for abdominal pain, vomiting, diarrhea, constipation, anorexia, black/tarry stool, rectal bleeding. 18:45 Back: Negative for pain at rest, pain with movement, radiated pain. 18:45 : Negative for urinary symptoms, flank pain. 18:45 MS/extremity: Positive for pain, tenderness, of the left trapezius and left shoulder, Negative for injury or acute deformity, decreased range of motion, paresthesias. 18:45 Skin: Negative for cellulitis, rash. 18:45 Neuro: Positive for headache, Negative for altered mental status, dizziness, syncope, weakness. 18:45 All other systems are negative. Exam: 18:55 Constitutional: The patient appears in no acute distress, alert, awake, cp non-diaphoretic, non-toxic, well developed, well nourished. 18:55 Head/Face: Normocephalic, atraumatic. Eyes: Pupils equal round and reactive to light, cp extra-ocular motions intact. Lids and lashes normal. Conjunctiva and sclera are non-icteric and not injected. Cornea within normal limits. Periorbital areas with no swelling, redness, or edema. ENT: Nares patent. No nasal discharge, no septal abnormalities noted. Tympanic membranes are normal and external auditory canals are clear. Oropharynx with no redness, swelling, or masses, exudates, or evidence of obstruction, uvula midline. Mucous membranes moist. 18:55 Neck: External neck: swelling, is not appreciated, ROM/movement: is normal, is supple, no range of motions limitations, no meningismus, no nuchal rigidity, Lymph nodes: no appreciated lymphadenopathy. 18:55 Chest/axilla: Inspection: normal, Palpation: is normal, no crepitus, no tenderness. 18:55 Cardiovascular: Rate: normal, Rhythm: regular, Pulses: Pulses are 2+ in right radial artery and left radial artery. Heart sounds: murmur, not appreciated, Edema: is not appreciated, JVD: is not appreciated. 18:55 Respiratory: the patient does not display signs of respiratory distress, Respirations: normal, no use of accessory muscles, no retractions, no splinting, no tachypnea, labored breathing, is not present, Breath sounds: are clear throughout, no decreased breath sounds, no stridor, no wheezing. 18:55 Abdomen/GI: Inspection: abdomen appears normal, Bowel sounds: active, all quadrants, Palpation: abdomen is soft and non-tender, in all quadrants, rebound tenderness, is not appreciated, voluntary guarding, is not appreciated, involuntary guarding, is not appreciated. 18:55 Back: pain, is absent, ROM is normal. 18:55 Musculoskeletal/extremity: Exam is negative for decreased range of motion, deformity, injury. 18:55 Skin: no rash present. 18:55 Neuro: Orientation: to person, place \T\ time. Mentation: is normal, Cerebellar function: is grossly normal, Motor: moves all fours, strength is normal, Sensation: is normal. 19:35 ECG was reviewed by the Attending Physician. cp 22:40 ECG was reviewed by the Attending Physician. cp Vital Signs: 18:18 Pulse 82; Resp 16; Temp 97.4; Pulse Ox 98% on R/A; Weight 86.18 kg; Height 5 ft. 1 in. la1 (154.94 cm); 18:20 BP 157 / 74; la1 19:10 BP 135 / 70; Pulse 66; Resp 17; Temp 97.5; Pulse Ox 99% ; Pain 0/10; rr5 20:30 BP 131 / 79; Pulse 63; Resp 15; Pulse Ox 99% on R/A; rr5 21:20 BP 145 / 75; Pulse 63; Resp 17; Pulse Ox 99% ; Pain 0/10; rr5 23:24 BP 112 / 55; Pulse 60; Resp 23; Pulse Ox 96% on R/A; ak1 18:18 Body Mass Index 35.90 (86.18 kg, 154.94 cm) la1 MDM: 18:26 Patient medically screened. nathan 19:00 Differential diagnosis: tendonitis, migraine, CVA, acute MN, angina, cardiac arrythmia. cp 23:22 Data reviewed: vital signs, nurses notes, lab test result(s), EKG, radiologic studies, cp plain films. 23:22 Test interpretation: by ED physician or midlevel provider: ECG, plain radiologic cp studies. Counseling: I had a detailed discussion with the patient and/or guardian regarding: the historical points, exam findings, and any diagnostic results supporting the discharge/admit diagnosis, lab results, radiology results, the need for outpatient follow up, a family practitioner, to return to the emergency department if symptoms worsen or persist or if there are any questions or concerns that arise at home. Response to treatment: the patient's symptoms have markedly improved after treatment, and as a result, I will discharge patient. ED course: VSS. Initial and repeat EKGs and troponin negative. Patient reports pain improved. 04/29 18:32 Order name: Basic Metabolic Panel; Complete Time: 20:01 cp / 20:01 Interpretation: Normal except: CL 111; GLUC 118; BUN 19; GFR 63. cp / 18:32 Order name: CBC with Diff cp / 18:32 Order name: LFT's; Complete Time: 20:01 cp / 20:01 Interpretation: Normal except: AST 42. cp / 18:32 Order name: Magnesium; Complete Time: 20:01 cp / 18:32 Order name: NT PRO-BNP; Complete Time: 20:01 cp / 18:32 Order name: PT-INR; Complete Time: 20:01 cp / 18:32 Order name: Troponin (emerg Dept Use Only); Complete Time: 20:01 cp / 20:02 Interpretation: Within normal limits: TROPED < 0.02. cp / 18:32 Order name: XRAY Chest (1 view); Complete Time: 20:01 cp / 20:02 Interpretation: Report review. cp 04/29 18:32 Order name: EKG; Complete Time: 18:37 cp / 18:32 Order name: CT Head Brain wo Cont; Complete Time: 20:01 cp 04/29 20:02 Interpretation: Report reviewed. cp 04/29 22:10 Order name: Troponin (emerg Dept Use Only) rr5 04/29 18:32 Order name: Cardiac monitoring; Complete Time: 19:59 cp / 18:32 Order name: EKG - Nurse/Tech; Complete Time: 19:59 cp / 18:32 Order name: IV Saline Lock; Complete Time: 19:59 cp / 18:32 Order name: Labs collected and sent; Complete Time: 19:59 cp / 18:32 Order name: O2 Per Protocol; Complete Time: 19:59 cp / 18:32 Order name: O2 Sat Monitoring; Complete Time: 19:59 cp 04/29 22:10 Order name: EKG - Nurse/Tech; Complete Time: 22:49 rr5 04/29 22:14 Order name: EKG; Complete Time: 22:15 cp EC:35 Rate is 64 beats/min. Rhythm is regular. KS interval is normal. QRS interval is normal. cp QT interval is normal. Interpreted by me. Reviewed by me. 22:40 Rate is 60 beats/min. Rhythm is regular. KS interval is normal. QRS interval is normal. cp QT interval is normal. Interpreted by me. Reviewed by me. Administered Medications: 19:52 Drug: Aspirin Chewable Tablet 324 mg Route: PO; rr5 21:00 Follow up: Response: No adverse reaction rr5 23:37 Not Given (Other Intervention Used; no pain reported): morphine 2 mg IVP once; (PAIN>8) rr5 RASS on ADMN: Combtv4, Very Agttd3, Agttd2, Rstlss1, AlertClm0, Drwsy-1, LtSdtn-2, ModSdtn-3, DpSdtn-4, UnArsble-5 x2 Disposition: 04/30 09:11 Co-signature as Attending Physician, Eyad Martinez MD I agree with the assessment and nathan plan of care. Disposition: 04/29/19 23:23 Discharged to Home. Impression: Headache, Pain in left upper arm, Hypertensive heart disease. - Condition is Stable. - Discharge Instructions: General Headache Without Cause, Hypertension, Musculoskeletal Pain, How to Take Your Blood Pressure, [id number], Aspirin and Your Heart. - Prescriptions for Fiorinal 50- 325-40 mg Oral Capsule - take 1 capsule by ORAL route every 4 hours As needed - not to exceed 6 capsules per day; 20 capsule. - Medication Reconciliation Form, Thank You Letter, Antibiotic Education, Prescription Opioid Use form. - Follow up: Private Physician; When: 2 - 3 days; Reason: Recheck today's complaints. - Problem is new. - Symptoms have improved. Signatures: Dispatcher [employer] [facility] Eyad Martinez MD MD cha Attema, Lee, RN RN la1 Eyad Ray PA PA cp Roque, Raymond, RN RN rr5 Corrections: (The following items were deleted from the chart) 04/29 22:19 22:14 EKG - Nurse/Tech ordered. cp cp 22:52 22:15 TROPONIN I+C.LAB.BRZ ordered. [facility] 23:23 23:23 04/29/2019 23:23 Discharged to Home. Impression: Headache; Pain in left upper cp arm. Condition is Stable. Forms are Medication Reconciliation Form, Thank You Letter, Antibiotic Education, Prescription Opioid Use. Follow up: Private Physician; When: 2 - 3 days; Reason: Recheck today's complaints. Problem is new. Symptoms have improved. cp 23:38 23:23 04/29/2019 23:23 Discharged to Home. Impression: Headache; Pain in left upper rr5 arm; Hypertensive heart disease. Condition is Stable. Forms are Medication Reconciliation Form, Thank You Letter, Antibiotic Education, Prescription Opioid Use. Follow up: Private Physician; When: 2 - 3 days; Reason: Recheck today's complaints. Problem is new. Symptoms have improved. cp
--- NOTE | 2019-04-30 15:43 | EKG ---
Test Date: 2019-04-29 Test Time: 22:30:48 Lean Specialist: KIMBERLY MEASUREMENT RESULTS: Intervals: Rate: 60 NV: 148 QRSD: 84 QT: 438 QTc: 438 [place]: P: 19 NV: 148 QRS: 1 T: 22 INTERPRETIVE STATEMENTS: Normal sinus rhythm with sinus arrhythmia Moderate voltage criteria for LVH, may be normal variant Borderline ECG Compared to ECG 04/29/2019 19:26:32 No significant changes Electronically Signed On 04-30-19 15:42:37 CDT by Paul Coker
--- NOTE | 2019-04-30 15:48 | EKG ---
Test Date: 2019-04-29 Test Time: 19:26:32 It Application Support Analyst: KIMBERLY MEASUREMENT RESULTS: Intervals: Rate: 64 DC: 142 QRSD: 80 QT: 414 QTc: 427 [place]: P: 2 DC: 142 QRS: -4 T: 20 INTERPRETIVE STATEMENTS: Normal sinus rhythm Voltage criteria for left ventricular hypertrophy Abnormal ECG Compared to ECG 03/24/2018 16:01:25 No significant changes Electronically Signed On 04-30-19 15:47:07 CDT by Paul Coker
== END 2019-04-29 23:38 | disposition home or self-care (01) ==
LOC: ER 18:01
DX: I11.9 Hypertensive heart disease without heart failure (principal); R51 Headache; M79.602 Pain in left arm
CPT/HCPCS: 36415; 70450; 71045; 80048; 80076; 83735; 83880; 84484; 85025; 85610; 93005; 99284; J2270

== ENCOUNTER 2019-07-16 17:08 | Emergency (ER) | payer OTHER ==
--- NOTE | 2019-07-16 17:48 | EDPHYS ---
Physician Documentation [facility] Name: Luz Elena Calderon Age: 63 yrs Sex: Female : 1955 Arrival Date: 07/16/2019 Time: 17:11 Bed 19 Private MD: Trey Bell ED Physician Eyad Martinez HPI: 07/16 17:44 This 63 yrs old Female presents to ER via Ambulatory with complaints of Fever, nathan Headache. 17:44 The patient reports fever, that was measured at 100 degrees Fahrenheit. Onset: The nathan symptoms/episode began/occurred 1 day(s) ago. Modifying factors: there are no obvious modifying factors. Modifying factors: The patient has had contact with sick son. Associated signs and symptoms: Pertinent positives: cough, headache. Associated signs and symptoms: Pertinent negatives:. Severity of symptoms: At their worst the symptoms were mild in the emergency department the symptoms are unchanged. The patient has not experienced similar symptoms in the past. Historical: - Allergies: 17:15 No Known Allergies; la1 - PMHx: 17:15 Hypertension; la1 - Immunization history:: Adult Immunizations up to date. - Social history:: Smoking status: Patient/guardian denies using tobacco. - Ebola Screening: : No symptoms or risks identified at this time. - Family history:: not pertinent. ROS: 17:44 Constitutional: Negative for fever, chills, and weight loss, Eyes: Negative for injury, nathan pain, redness, and discharge, ENT: Negative for injury, pain, and discharge, Neck: Negative for injury, pain, and swelling, Cardiovascular: Negative for chest pain, palpitations, and edema, Abdomen/GI: Negative for abdominal pain, nausea, vomiting, diarrhea, and constipation, Back: Negative for injury and pain, : Negative for injury, bleeding, discharge, and swelling, MS/Extremity: Negative for injury and deformity, Skin: Negative for injury, rash, and discoloration, Psych: Negative for depression, anxiety, suicide ideation, homicidal ideation, and hallucinations, Allergy/Immunology: Negative for hives, rash, and allergies, Endocrine: Negative for neck swelling, polydipsia, polyuria, polyphagia, and marked weight changes, Hematologic/Lymphatic: Negative for swollen nodes, abnormal bleeding, and unusual bruising. 17:44 Respiratory: Positive for cough. 17:44 Neuro: Positive for headache. Exam: 17:44 Constitutional: This is a well developed, well nourished patient who is awake, alert, nathan and in no acute distress. Head/Face: Normocephalic, atraumatic. Eyes: Pupils equal round and reactive to light, extra-ocular motions intact. Lids and lashes normal. Conjunctiva and sclera are non-icteric and not injected. Cornea within normal limits. Periorbital areas with no swelling, redness, or edema. ENT: Nares patent. No nasal discharge, no septal abnormalities noted. Tympanic membranes are normal and external auditory canals are clear. Oropharynx with no redness, swelling, or masses, exudates, or evidence of obstruction, uvula midline. Mucous membranes moist. Neck: Trachea midline, no thyromegaly or masses palpated, and no cervical lymphadenopathy. Supple, full range of motion without nuchal rigidity, or vertebral point tenderness. No Meningismus. Chest/axilla: Normal chest wall appearance and motion. Nontender with no deformity. No lesions are appreciated. Cardiovascular: Regular rate and rhythm with a normal S1 and S2. No gallops, murmurs, or rubs. Normal PMI, no JVD. No pulse deficits. Respiratory: Lungs have equal breath sounds bilaterally, clear to auscultation and percussion. No rales, rhonchi or wheezes noted. No increased work of breathing, no retractions or nasal flaring. Abdomen/GI: Soft, non-tender, with normal bowel sounds. No distension or tympany. No guarding or rebound. No evidence of tenderness throughout. Back: No spinal tenderness. No costovertebral tenderness. Full range of motion. Skin: Warm, dry with normal turgor. Normal color with no rashes, no lesions, and no evidence of cellulitis. MS/ Extremity: Pulses equal, no cyanosis. Neurovascular intact. Full, normal range of motion. Neuro: Awake and alert, GCS 15, oriented to person, place, time, and situation. Cranial nerves II-XII grossly intact. Motor strength 5/5 in all extremities. Sensory grossly intact. Cerebellar exam normal. Normal gait. Psych: Awake, alert, with orientation to person, place and time. Behavior, mood, and affect are within normal limits. Vital Signs: 17:19 BP 132 / 81; Pulse 72; Resp 18; Temp 98.5; Pulse Ox 98% on R/A; Weight 85.28 kg; Height la1 5 ft. 1 in. (154.94 cm); 17:19 Body Mass Index 35.52 (85.28 kg, 154.94 cm) la1 MDM: 17:25 Patient medically screened. [facility] 17:44 Data reviewed: vital signs, nurses notes. nathan Administered Medications: 18:00 Drug: Tamiflu 75 mg Route: PO; em 18:07 Follow up: Response: Medication administered at discharge. em 18:00 Drug: Tylenol 650 mg Route: PO; em 18:08 Follow up: Response: Medication administered at discharge. em Disposition: 07/16/19 17:47 Discharged to Home. Impression: Fever, unspecified, Headache, Influenza due to certain identified influenza viruses. - Condition is Stable. - Discharge Instructions: Fever, Adult, Influenza, Adult, Influenza, Adult, [id number]. - Prescriptions for Zofran 4 mg Oral Tablet - take 1 tablet by ORAL route every 12 hours As needed; 20 tablet. Tamiflu 75 mg Oral Capsule - take 1 tablet by ORAL route every 12 hours for 5 days; 10 tablet. - Medication Reconciliation Form, Thank You Letter, Antibiotic Education, Prescription Opioid Use form. - Follow up: Trey Bell MD; When: 2 - 3 days; Reason: Recheck today's complaints, Continuance of care, Re-evaluation by your physician. - Problem is new. - Symptoms have improved. Signatures: Eyad Martinez MD MD cha Munoz, Edgar, WEB SERVICES MANAGER WEB SERVICES MANAGER Leighton Kay RN RN la1 Corrections: (The following items were deleted from the chart) 18:08 17:47 07/16/2019 17:47 Discharged to Home. Impression: Fever, unspecified; Headache; em Influenza due to certain identified influenza viruses. Condition is Stable. Forms are Medication Reconciliation Form, Thank You Letter, Antibiotic Education, Prescription Opioid Use. Follow up: Trey Bell; When: 2 - 3 days; Reason: Recheck today's complaints, Continuance of care, Re-evaluation by your physician. Problem is new. Symptoms have improved. [facility]
--- NOTE | 2019-07-16 17:48 | ER ---
Nurse's Notes [facility] Name: Luz Elena Calderon Age: 63 yrs Sex: Female : 1955 Arrival Date: 07/16/2019 Time: 17:11 Bed 19 Private MD: Trey Bell Diagnosis: Fever, unspecified;Headache;Influenza due to certain identified influenza viruses Presentation: 07/16 17:17 Presenting complaint: Patient states: fever, LENNON that started today, multiple family la1 members with flu A. Transition of care: patient was not received from another setting of care. Onset of symptoms was July 16, 2019. Risk Assessment: Do you want to hurt yourself or someone else? Patient reports no desire to harm self or others. Initial Sepsis Screen:. Care prior to arrival: None. 17:17 Method Of Arrival: Ambulatory la1 17:17 Acuity: AILEEN 3 la1 Historical: - Allergies: 17:15 No Known Allergies; la1 - PMHx: 17:15 Hypertension; la1 - Immunization history:: Adult Immunizations up to date. - Social history:: Smoking status: Patient/guardian denies using tobacco. - Ebola Screening: : No symptoms or risks identified at this time. - Family history:: not pertinent. Screenin:30 Abuse screen: Denies threats or abuse. Nutritional screening: No deficits noted. em Tuberculosis screening: No symptoms or risk factors identified. Fall Risk None identified. Assessment: 17:30 General: Appears in no apparent distress. comfortable, Behavior is calm, cooperative, em Reports fever for 12-24 hours. Pain: Complains of pain in "head and body aches" Pain currently is 4 out of 10 on a pain scale. Neuro: Level of Consciousness is awake, alert, obeys commands, Oriented to person, place, time, situation, Appropriate for age Reports headache. Cardiovascular: Capillary refill < 3 seconds Patient's skin is warm and dry. Respiratory: Airway is patent Respiratory effort is even, unlabored, Respiratory pattern is regular, symmetrical. GI: Patient currently denies nausea, vomiting. Derm: Skin is intact, is healthy with good turgor, Skin is pink, warm \\T\\ dry. Musculoskeletal: Capillary refill < 3 seconds, Range of motion: intact in all extremities. Vital Signs: 17:19 BP 132 / 81; Pulse 72; Resp 18; Temp 98.5; Pulse Ox 98% on R/A; Weight 85.28 kg; Height la1 5 ft. 1 in. (154.94 cm); 17:19 Body Mass Index 35.52 (85.28 kg, 154.94 cm) la1 ED Course: 17:11 Patient arrived in ED. rg4 17:11 Trey Bell MD is Private Physician. rg4 17:17 Triage completed. la1 17:17 Arm band placed on left wrist. la1 17:25 Eyad Martinez MD is Attending Physician. [facility] 17:30 Chirag Vargas LVN is Primary Nurse. em 17:30 Patient has correct armband on for positive identification. Bed in low position. Call em light in reach. Adult w/ patient. 17:46 Trey Bell MD is Referral Physician. [facility] 18:05 No provider procedures requiring assistance completed. Patient did not have IV access em during this emergency room visit. Administered Medications: 18:00 Drug: Tamiflu 75 mg Route: PO; em 18:07 Follow up: Response: Medication administered at discharge. em 18:00 Drug: Tylenol 650 mg Route: PO; em 18:08 Follow up: Response: Medication administered at discharge. em Outcome: 17:47 Discharge ordered by . [facility] 18:05 Discharged to home ambulatory, with family. em 18:05 Condition: good 18:05 Discharge instructions given to patient, family, Instructed on discharge instructions, follow up and referral plans. medication usage, Demonstrated understanding of instructions, follow-up care, medications, Prescriptions given X 2. 18:08 Patient left the ED. em Signatures: Eyad Martinez MD MD cha Munoz, Edgar, LVN LVN em Leighton Kay, RN RN la1 Chrissy Velazco rg4
[2019-07-16] MEDS ORDERED: ACETAMINOPHEN 325 MG TABLET ONE (17:58)
[2019-07-16] MEDS ORDERED: OSELTAMIVIR 75 MG CAP ONE (17:58)
[2019-07-16 19:43] VITALS: BP 132/81; TEMP 98.5; O2SAT 98
== END 2019-07-16 18:08 | disposition home or self-care (01) ==
LOC: ER 17:08
DX: J10.1 Influenza due to other identified influenza virus with other respiratory manifestations (principal); R51 Headache; I10 Essential (primary) hypertension
CPT/HCPCS: 99283

== ENCOUNTER 2021-09-20 08:55 | Day surgery (SDC) | payer OTHER ==
--- NOTE | 2021-09-17 11:32 | RAD REPORT ---
EXAM DESCRIPTION: RAD - Chest Pa And Lat (2 Views) - 09/17/2021 11:23 am CLINICAL HISTORY: pre op pending knee arthroscopy Chest pain. COMPARISON: Chest Single View dated 04/29/2019; Chest Pa And Lat (2 Views) dated 03/24/2018; Chest Sin gle View dated 12/06/2017; Chest Single View dated 08/16/2016 FINDINGS: The lungs are clear. The heart is mildly enlarged in size. No displaced fractures.
[2021-09-17 11:59] LABS: Absolute Lymphocytes (CBC) 1.6 K/uL (0.7-4.9); Hematocrit 40.8 % (36.0-45.0); Lymphocytes % 23.9 % (15.3-44.8); MPV 9.1 fL (7.6-11.3); RBC Red Blood Cell Count 4.32 M/uL (3.86-4.86)
[2021-09-17 12:08] LABS: Protime INR 1.03
[2021-09-17 12:17] LABS: BUN Blood Urea Nitrogen 18 mg/dL (7-18); Bicarbonate 28 mmol/L (21-32); Glucose Level 107 mg/dL (74-106); Potassium 4.7 mmol/L (3.5-5.1); Sodium Level 141 mmol/L (136-145)
[2021-09-20] MEDS ORDERED: dexAMETHasone 10 MG/ML VIAL ONE (09:06)
[2021-09-20] MEDS ORDERED: KETOROLAC 30 MG/ML INJ ONE (09:06)
[2021-09-20] MEDS ORDERED: LIDOCAINE 2% MPF 5 ML VIAL ONE (09:06)
[2021-09-20] MEDS ORDERED: MIDAZOLAM HCL 2 MG/2 ML INJ ONE (09:06)
[2021-09-20] MEDS ORDERED: FENTANYL CITR 100 MCG/2 ML ONE (09:06)
[2021-09-20] MEDS ORDERED: propofoL 200 MG/20 ML VIAL IV ONE (09:06)
[2021-09-20] MEDS ORDERED: ONDANSETRON 4 MG/2 ML VIAL ONE (09:07)
[2021-09-20] MEDS ORDERED: CEFAZOLIN/NS 1gm 1 GM/50 ML BAG ONE (09:11)
[2021-09-20] MEDS ORDERED: Ringers Lactate 1,000 ML IV ONE (09:11)
[2021-09-20] MEDS ORDERED: BUPIVACAINE 0.25% PF 10 ML VIAL ONE (09:30)
[2021-09-20] MEDS ORDERED: CEFAZOLIN SODIUM 1 GM/VIAL ONE (10:34)
[2021-09-20] MEDS ORDERED: NS 0.9% VIAL 10 ML ONE (10:34)
--- NOTE | 2021-09-20 11:06 | P.BOP ---
Preoperative diagnosis: right medial meniscus tear, right knee osteoarthritis Postoperative diagnosis: same Primary procedure: right knee arthroscopic partial medial meniscectomy [place] Administrator: NONE,NONE Estimated blood loss: 3 cc Specimen: none Findings: see dictation Anesthesia: General Complications: None Implants: none Fluids & blood products: per anesthesia record; TT: 30 mins @ 300 mmHg Transferred to: Recovery Room Condition: Good
[2021-09-20] MEDS ORDERED: HYDROMORPHONE HCL 1 MG/ML INJ ONE (11:27)
[2021-09-20 12:19] VITALS: BP 148/76; TEMP 97; O2SAT 98
[2021-09-20] MEDS ORDERED: HYDROCODONE/APAP 7.5/325 MG TAB ONE (12:27)
--- NOTE | 2021-09-21 20:55 | OP ---
Date of Procedure: 09/20/2021 Surgeon: Girish Remy MD Preoperative Diagnosis: Right knee medial meniscus tear. Postoperative Diagnoses: 1.Right knee medial meniscus tear. 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 Procedure Performed: Right knee partial medial meniscectomy. Anesthesia: General, LMA. Fluids: Per Anesthesia record. Estimated Blood Loss: 3 cc. Complications: None. Implants: None. Tourniquet Time: 27 minutes at 300 mmHg. Indication For Procedure: Luz Elena is a 65-year-old female presented to my clinic with signs, symptom s, and MRI findings consistent with right knee medial meniscus tear as well as right knee osteoarthri tis. We attempted conservative treatment measures including corticosteroid and viscosupplementation injections as well as extensive home exercise program. The patient failed these conservative treatme nt measures and continued pain and mechanical symptoms of her right knee. I discussed with the patie nt and family the risks and benefits associated with operative and nonoperative treatment as well as continued pain after arthroscopy secondary to her arthritis and expressed understanding and elected t o proceed with operative treatment. Description Of Procedure: After informed consent was obtained, the patient was identified in the pre operative holding area. The right lower extremity was marked. The patient was then brought back to the operating room, transferred to the operating table in supine fashion and placed under general LMA anesthesia. The right lower extremity was then prepped and draped in usual sterile fashion. A time -out was initiated. The correct patient and procedure were confirmed and identified. The patient di d receive her preoperative prophylactic antibiotics. The right lower extremity was exsanguinated and tourniquet was inflated to 300 mmHg. Standard anteromedial and anterolateral portals were created a nd diagnostic arthroscopy was performed. The arthroscope was brought first to the patellofemoral [facility] nt. There were no significant chondromalacia changes noted. The arthroscope was then brought in the medial and lateral gutters. There were no loose bodies found in the gutters. The arthroscope was t hen brought in the medial compartment. The patient did have grade 4 chondromalacia of the medial fem oral condyle as well as medial tibial plateau. The patient had a complex tear of the posterior horn of the medial meniscus near the root. This was debrided and a partial medial meniscectomy was perfor med using meniscal biters and arthroscopic ami to smooth meniscal borders. The posterior horn of meniscus was then probed and was found to be stable after completion of the debridement. The arthro scope was then brought in the intercondylar notch. The patient was noted to have an intact ACL and P CL. The arthroscope was then brought in the lateral compartment. The patient was noted to have an i ntact lateral meniscus, which was stable to probe as well as shows a grade 4 chondromalacia change or trough-like degeneration within the lateral femoral condyle. There were no loose or unstable chondr al fragments noted. Arthroscopic instruments were then removed without complication. The wounds wer e then irrigated thoroughly with normal saline. The portals were then approximated using a 3-0 Monoc ryl. Sterile dressings were applied. Tourniquet was let down. The patient was awakened and transfe rred back in stable condition. Postoperative Plan: The patient will be weightbearing as tolerated using a walker postoperatively to follow up in 1 week for wound check. CV/MODL Voice ID: [id number] Report ID: [id number]
== END 2021-09-20 12:49 | disposition home or self-care (01) ==
LOC: OR 08:55
PROVIDERS: ATTEND Orthopaedic Surgery Sports Medicine
PROC: 0SBC4ZZ Excision of Right Knee Joint, Percutaneous Endoscopic Approach (ICD-10-PCS; principal; 2021-09-20 10:00)
DX: S83.241A Other tear of medial meniscus, current injury, right knee, initial encounter (principal); M25.561 Pain in right knee; M17.11 Unilateral primary osteoarthritis, right knee; Z20.822 Contact with and (suspected) exposure to COVID-19
CPT/HCPCS: 29881; 85025; 80048; 36415; 85610; 85730; 71046; U0002; J2704; J2250; J3010; J1100; J1170; J0690 ×2; J7120; J2405